=== PATIENT | male | born 2000 | race Two or more races ===

== ENCOUNTER 2024-11-01 12:29 | Inpatient (IN) | payer MEDICAID, OTHER ==
[~2024-11-01] VITALS: Ht 170.2 cm; Wt 65.5 kg
--- NOTE | 2024-11-01 12:40 | ED.PDOC ---
Altered Mental Status HPI Comments This is a 32 year old male ALTONA presenting to the ED with chief complaint of ETOH intoxication. EMS reports that the patient was found on the side of the road unconscious by bystanders, but patient was alert upon their arrival. EMS relays patient had drank an unknown amount of alcohol prior to being found. Patient denies any N/V/D, abdominal pain, dizziness, or headache. Time Seen by MD: 12:38 Reviewed Notes: Nurses Notes, Breaker Up Machine Operator Notes, Medications, Allergies Allergies: Coded Allergies: NO KNOWN ALLERGIES (Unverified , 11/01/24) Information Source: Patient, Emergency Med Personnel Mode of Arrival: Ambulatory Severity: Severe Timing: Hours Duration: Since onset Prehospital treatment: None Quality: Change in Behavior, Confusion Recent: Other (ETOH intoxication) Past Medical History PAST MEDICAL HISTORY: Denies Surgical History: Denies all surgeries Family History Family History: Reviewed,noncontributory to illness Social History Smoker: Non-Smoker Alcohol: Heavy Drugs: Denies Drug Use Lives In: Unknown Constitutional: denies: chills, diaphoresis, fatigue, fever, malaise, sweats, weakness, others EENTM: denies: blurred vision, double vision, ear bleeding, ear discharge, ear drainage, ear pain, ear ringing, eye pain, eye redness, hearing loss, mouth pain, mouth swelling, nasal discharge, nose bleeding, nose congestion, nose pain, photophobia, tearing, throat pain, throat swelling, voice changes, others Respiratory: denies: cough, hemoptysis, orthopnea, SOB at rest, shortness of breath, SOB with excertion, stridor, wheezing, others Cardiovascular: denies: chest pain, dizzy spells, diaphoresis, Dyspnea on exertion, edema, irregular heart beat, left arm pain, lightheadedness, palpi tations, PND, syncope, others Gastrointestinal: denies: abdomen distended, abdominal pain, blood streaked bowels, constipated, diarrhea, dysphagia, difficulty swallowing, hematemesis, melena, nausea, poor appetite, poor fluid intake, rectal bleeding, rectal pain, vomiting, others Genitourinary: denies: burning, dysuria, flank pain, frequency, hematuria, incontinence, penile discharge, penile sore, pain, testicle pain, testicle swelling, urgency, others Neurological: denies: dizziness, fainting, headache, left sided numbness, left sided weakness, numbness, paresthesia, pre-existing deficit, right sided numbness, right sided weakness, seizure, speech problems, tingling, tremors, weakness, others Musculoskeletal: denies: back pain, gout, joint pain, joint swelling, muscle pain, muscle stiffness, neck pain, others Integumetry: denies: bruises, change in color, change in hair/nails, dryness, laceration, lesions, lumps, rash, wounds, others Allergic/Immunocompromised: denies: Difficulty Healing, Frequent Infections, Hives, Itching, others Hematologic/Lymphatic: denies: anemia, blood clots, easy bleeding, easy bruis ing, swollen glands, others Endocrine: denies: excessive hunger, excessive sweating, excessive thirst, exc essive urination, flushing, intolerance to cold, intolerance to heat, unexplained weight gain, unexplained weight loss, others Psychiatric: denies: anxiety, bipolar disorder, depression, hopeless, panic disorder, schizophrenia, sleepless, suicidal, others Unable to Obtain due to: Altered Mental Status All Other Systems: Reviewed and Negative Physical Exam General Appearance: Moderate Distress, Normal HEENT: Normal ENT Inspection, Pharynx Normal, TMs Normal Neck: Full Range of Motion, Non-Tender, Normal, Normal Inspection Respiratory: Chest Non-Tender, Lungs Clear, No Accessory Muscle Use, No Res piratory Distress, Normal Breath Sounds Cardiovascular: No Edema, No JVD, No Murmur, No Gallop, Normal Peripheral Pulses, Regular Rate/Rhythm Breast Exam: Deferred Gastrointestinal: No Organomegaly, Non Tender, No Pulsatile Mass, Normal Bowel Sounds, Soft Genitalia: Deferred Pelvic: Deferred Rectal: Deferred Extremities: No calf tenderness, Normal capillary refill, Normal range of motion, Non-tender, No pedal edema Musculoskeletal : Apperance: Normal Neurologic: Disoriented Cerebellar Function: NOT DONE Reflexes: NOT DONE Skin: Dry, Normal Color, Warm Peripheral Pulses: 3+ Radial (R), 3+ Radial (L) Lymphatic: No Adenopathy Was a procedure done? Was a procedure done?: No Differential Diagnosis (ALOC) Differential Diagnosis: ETOH Intoxication X-Ray, Labs, Meds, VS Vital Signs Date Time Temp Pulse Resp B/P (MAP) Pulse Ox O2 Delivery O2 Flow Rate FiO2 11/01/24 13:15 89 16 98 Room Air* 0 21 11/01/24 13:15 98.3 83 15 140/85 (103) 99 98.3 11/01/24 12:53 98.0 107 17 137/60 96 98.0 Lab Test 11/01/24 13:02 11/01/24 12:58 11/01/24 12:56 Range/Units Urine Opiates Screen Neg NEGATIVE Urine Fentanyl Screen Neg NEGATIVE Urine Barbiturates Screen Neg NEGATIVE Urine Phencyclidine Screen Neg NEGATIVE Urine Amphetamines Screen Neg NEGATIVE Urine Benzodiazepines Screen Neg NEGATIVE Urine Cocaine Screen Neg NEGATIVE Urine Cannabinoids Screen Neg NEGATIVE POC Glucose 77 70-106 mg/dl White Blood Count 12.4 H 4.4-10.8 10^3/uL Red Blood Count 5.21 4.5-5.90 10^6/uL Hemoglobin 15.5 13.5-17.5 g/dL Hematocrit 44.6 41.0-53.0 % Mean Corpuscular Volume 85.7 80.0-100.0 fL Mean Corpuscular Hemoglobin 29.8 28.0-32.0 pg Mean Corpuscular Hemoglobin Concent 34.8 32.0-36.0 g/dL Red Cell Distribution Width 12.7 11.8-14.3 % Platelet Count 321 140-450 10^3/uL Mean Platelet Volume 7.9 6.9-10.8 fL Neutrophils (%) (Auto) 79.1 37.0-80.0 % Lymphocytes (%) (Auto) 14.8 10.0-50.0 % Monocytes (%) (Auto) 5.4 0.0-12.0 % Eosinophils (%) (Auto) 0.3 0.0-7.0 % Basophils (%) (Auto) 0.4 0.0-2.0 % Neutrophils # (Auto) 9.8 H 1.6-8.6 10 ^3/uL Lymphocytes # (Auto) 1.8 0.4-5.4 10 ^3/uL Monocytes # (Auto) 0.7 0-1.3 10 ^3/uL Eosinophils # (Auto) 0 0-0.8 10 ^3/uL Basophils # (Auto) 0.1 0-0.2 10 ^3/uL Nucleated Red Blood Cells 0.0 % Sodium Level 137 136-145 mmol/L Potassium Level 3.6 3.5-5.1 mmol/L Chloride Level 101 98-107 mmol/L Carbon Dioxide Level 24 20-31 mmol/L Anion Gap 12 5-15 Blood Urea Nitrogen 10 9-23 mg/dL Creatinine 0.86 0.700-1.30 mg/dL Glomerular Filtration Rate Calc 119 >90 mL/min BUN/Creatinine Ratio 11.6 10.0-20.0 Serum Glucose 87 74-106 mg/dL Calcium Level 9.9 8.7-10.4 mg/dL Plasma/Serum Blood Alcohol < 3.0 <10 mg/dL Current Medications Medications (Trade) Dose Ordered Sig/Juan Pablo Route Start Time Stop Time Status Last Admin Thiamine HCl 100 mg ONCE ONCE IV 11/01/24 12:45 11/01/24 12:46 DC 11/01/24 13:15 Sodium Chloride 1,000 ml @ 1,000 mls/hr Q1H ONCE IV 11/01/24 12:45 11/01/24 13:44 DC 11/01/24 13:15 Sodium Chloride 1,000 ml @ 150 mls/hr Q6H40M ONCE IV 11/01/24 12:45 11/01/24 19:24 11/01/24 13:16 Sodium Chloride 1,000 ml @ 1,000 mls/hr Q1H ONCE IV 11/01/24 13:30 11/01/24 14:29 DC 11/01/24 14:26 Patient alcohol on breath. Has been vomiting. Establish intravenous access. Was given fluids. Was given thiamine. CT of the head. WBC slightly elevated possibly from dehydration. Continue monitoring. Time of 1ST Reevaluation: 13:38 Reevaluation 1ST: Unchanged Patient Education/Counseling: Diagnosis, Treatment Family Education/Counseling: No Family Present SEPSIS Sepsis Screen Physician Orders Sodium Chloride 0.9% (11/01/24 12:45) Head Without Contrast (11/01/24 13:30) Lorazepam 2mg/Ml Inj (Ativan Inj) (11/01/24 13:30) Vital Signs Date Time Temp Pulse Resp B/P (MAP) Pulse Ox O2 Delivery O2 Flow Rate FiO2 11/01/24 13:15 89 16 98 Room Air* 0 21 11/01/24 13:15 98.3 83 15 140/85 (103) 99 98.3 11/01/24 12:53 98.0 107 17 137/60 96 98.0 Laboratory Tests Test 11/01/24 12:56 White Blood Count 12.4 10^3/uL (4.4-10.8) H Medications Medications Dose Ordered Sig/Juan Pablo Route Start Time Stop Time Status Last Admin Dose Admin Sodium Chloride 1,000 ml @ 150 mls/hr Q6H40M ONCE IV 11/01/24 12:45 11/01/24 19:24 11/01/24 13:16 Sodium Chloride 1,000 ml @ 1,000 mls/hr Q1H ONCE IV 11/01/24 12:45 11/01/24 13:44 DC 11/01/24 13:15 Sodium Chloride 1,000 ml @ 1,000 mls/hr Q1H ONCE IV 11/01/24 13:30 11/01/24 14:29 DC 11/01/24 14:26 Thiamine HCl 100 mg ONCE ONCE IV 11/01/24 12:45 11/01/24 12:46 DC 11/01/24 13:15 Departure 1 Departure Time of Disposition: 15:19 Impression: Primary Impression: Metabolic encephalopathy Additional Impression: Alcohol abuse Disposition: 09 ADMITTED INPATIENT Admit to: Med Surg Condition: Guarded Critical Care Note Critical Care Time?: No Stability Stability form required: No Heart Score Heart Score: Heart Score Response (Comments) Value History N/A 0 EKG N/A 0 Age N/A 0 Risk Factors N/A 0 Troponin N/A 0 Total 0 I personally scribed for JOSE PAYTON MD ([email or web address]) on 11/01/24 at 12:40. Electronically submitted by Yury Torres ([email or web address]). JOSE PAYTON MD Nov 01, 2024 12:40
[2024-11-01 13:15] VITALS: PULSE 89; RESP 16; O2SAT 98
[2024-11-01] MEDS: SODIUM CHLORIDE 0.9% 1,000 ML IV ONE ×3 (13:15→14:26)
[2024-11-01] MEDS: THIAMINE 100mg/ml INJ (200mg/2ml VIAL) IV ONE (13:15)
[2024-11-01] MEDS: LORazepam 2MG/ML-1ML VIAL ONE (13:49)
[2024-11-01 14:09] LABS: Hematocrit 44.6 % (41.0-53.0); Hemoglobin 15.5 g/dL (13.5-17.5); Mean Corpuscular Hemoglobin 29.8 pg (28.0-32.0); Mean Corpuscular Volume 85.7 fL (80.0-100.0); Nucleated Red Blood Cells % 0.0 %
--- NOTE | 2024-11-01 14:11 | DVH ---
CLINICAL HISTORY: altered TECHNIQUE: Helical scanning was performed of the head from the skull base to the vertex. Multiplanar reconstructions were performed. This exam was performed according to our departmental dose optimizat ion program. Up-to-date CT equipment and radiation dose reduction techniques are utilized as appropri ate. CTDI 59.6 DLP 03/12/71 COMPARISON: None FINDINGS: There is no evidence for acute intracranial hemorrhage, acute ischemic changes, mass, mass effect, or extra-axial fluid collection. There is no hydrocephalus or midline shift. There is no effacement of the cerebral sulci and basal subarachnoid cisterns. The harden-white matter differentiation is well toy ntained. The imaged paranasal sinuses are clear. IMPRESSION: NO ACUTE INTRACRANIAL ABNORMALITY SEEN.
[2024-11-01 14:17] LABS: Chloride 101 mmol/L (98-107); Potassium 3.6 mmol/L (3.5-5.1); Sodium 137 mmol/L (136-145)
[2024-11-01 14:18] LABS: Anion Gap 12 (5-15); Calcium 9.9 mg/dL (8.7-10.4); Carbon Dioxide 24 mmol/L (20-31)
[2024-11-01 14:23] LABS: BUN/Creatinine Ratio 11.6 (10.0-20.0); Blood Urea Nitrogen 10 mg/dL (9-23); Glucose 87 mg/dL (74-106)
[2024-11-01 14:54] LABS: Amphetamine Screen, Urine Neg (NEGATIVE); Barbiturate Scree,Urine Neg (NEGATIVE); Benzodiazephine Screen, Urine Neg (NEGATIVE); Cannabinoid Screen, Urine Neg (NEGATIVE); Cocaine Screen, Urine Neg (NEGATIVE); Opiate Scree,Urine Neg (NEGATIVE); Phencyclidine Screen, Urine Neg (NEGATIVE)
[2024-11-01] MEDS: LORazepam 2MG/ML-1ML VIAL IV ONE (15:18)
[2024-11-01 18:29] LABS: Urine Protein, UAD Negative (Negative)
[2024-11-01 19:34] VITALS: PULSE 71; RESP 20; O2SAT 97
[2024-11-02 07:28] VITALS: PULSE 68; RESP 14; O2SAT 100
--- NOTE | 2024-11-02 11:33 | DVHHP2 ---
History of Present Illness History of Present Illness 32 year old male ROSAURA presenting to the ED , altered on streets. EMS reports that the patient was found on the side of the road unconscious by bystanders, but patient was alert upon their arrival. EMS relays patient had drank an unknown amount of alcohol prior to being found. Patient denies any N/V/D, abdominal pain, dizziness, or headache. Review of Systems Review of Systems ALOC, poor ROS Allergies: Coded Allergies: NO KNOWN ALLERGIES (Unverified , 11/01/24) Exam Vital Signs Vital Signs Date Time Temp Pulse Resp B/P (MAP) Pulse Ox O2 Delivery O2 Flow Rate FiO2 11/02/24 07:28 98.1 68 14 114/60 (78) 100 98.1 11/02/24 07:28 Room Air* 0 21 Exam GEN: Healthy-appearing, A&O x1 HEENT: NC/AT; MMM. CV: RRR, no m/r/g. LUNGS: CTAB, no w/r/c. ABD: Soft, NT/ND, NBS, no masses or organomegaly. EXT: skin Warm, well perfused. no rashes. No clubbing, cyanosis, or edema. NEURO: Ambulating with no limitations. No focal deficits. Labs/Xrays Labs Test 11/01/24 13:02 11/01/24 12:58 11/01/24 12:56 Range/Units Urine Color Colorless Yellow Urine Clarity Clear Clear Urine pH 6.0 5.0-9.0 Urine Specific [place] 1.002 1.001-1.035 Urine Protein Negative Negative Urine Ketones Negative Negative Urine Blood Negative Negative /uL Urine Nitrite Negative Negative Urine Bilirubin Negative Negative Urine Urobilinogen Normal Negative mg/dL Urine Leukocyte Esterase Negative Negative /uL Urine RBC <1 0 - 3 /hpf Urine Microscopic WBC < 1 0-3 /HPF Urine Squamous Epithelial Cells None seen <5 /hpf Urine Bacteria None seen None Seen /hpf Urine Glucose Normal Normal mg/dL Urine Opiates Screen Neg NEGATIVE Urine Fentanyl Screen Neg NEGATIVE Urine Barbiturates Screen Neg NEGATIVE Urine Phencyclidine Screen Neg NEGATIVE Urine Amphetamines Screen Neg NEGATIVE Urine Benzodiazepines Screen Neg NEGATIVE Urine Cocaine Screen Neg NEGATIVE Urine Cannabinoids Screen Neg NEGATIVE POC Glucose 77 70-106 mg/dl White Blood Count 12.4 H 4.4-10.8 10^3/uL Red Blood Count 5.21 4.5-5.90 10^6/uL Hemoglobin 15.5 13.5-17.5 g/dL Hematocrit 44.6 41.0-53.0 % Mean Corpuscular Volume 85.7 80.0-100.0 fL Mean Corpuscular Hemoglobin 29.8 28.0-32.0 pg Mean Corpuscular Hemoglobin Concent 34.8 32.0-36.0 g/dL Red Cell Distribution Width 12.7 11.8-14.3 % Platelet Count 321 140-450 10^3/uL Mean Platelet Volume 7.9 6.9-10.8 fL Neutrophils (%) (Auto) 79.1 37.0-80.0 % Lymphocytes (%) (Auto) 14.8 10.0-50.0 % Monocytes (%) (Auto) 5.4 0.0-12.0 % Eosinophils (%) (Auto) 0.3 0.0-7.0 % Basophils (%) (Auto) 0.4 0.0-2.0 % Neutrophils # (Auto) 9.8 H 1.6-8.6 10 ^3/uL Lymphocytes # (Auto) 1.8 0.4-5.4 10 ^3/uL Monocytes # (Auto) 0.7 0-1.3 10 ^3/uL Eosinophils # (Auto) 0 0-0.8 10 ^3/uL Basophils # (Auto) 0.1 0-0.2 10 ^3/uL Nucleated Red Blood Cells 0.0 % Sodium Level 137 136-145 mmol/L Potassium Level 3.6 3.5-5.1 mmol/L Chloride Level 101 98-107 mmol/L Carbon Dioxide Level 24 20-31 mmol/L Anion Gap 12 5-15 Blood Urea Nitrogen 10 9-23 mg/dL Creatinine 0.86 0.700-1.30 mg/dL Glomerular Filtration Rate Calc 119 >90 mL/min BUN/Creatinine Ratio 11.6 10.0-20.0 Serum Glucose 87 74-106 mg/dL Calcium Level 9.9 8.7-10.4 mg/dL Plasma/Serum Blood Alcohol < 3.0 <10 mg/dL SEPSIS Sepsis Screen Date sepsis recognized/suspect: Nov 01, 2024 Time Sepsis recognized/suspect: 1935 Recent Procedure: No On Antibiotic Therapy: No Respiratory Rate >20: No Heart Rate >90: No Temp<36 C (96.8 F) or >38.3 C: No SBP <90 or MAP <65 mmHG: No New Acute Mental Status Change: No Is the patient on CPAP, BIPAP,: No Vital Signs Date Time Temp Pulse Resp B/P (MAP) Pulse Ox O2 Delivery O2 Flow Rate FiO2 11/02/24 07:28 98.1 68 14 114/60 (78) 100 98.1 11/02/24 07:28 68 14 100 Room Air* 0 21 Assessment/Plan Assessment/Plan 11/[address] confused, Sirs present, CBC with leukocytosis, neutrophilia, some tachycardia. A&O x1, head CT negative, UA, UDS negative, blood alcohol level negative, needs ALOC workup. Some complain of vague chest pain and abdominal pain Diagnosis: Acute toxic metabolic encephalopathy Leukocytosis Neutrophilia Tachycardia Tachypnea, Plan: ALOC workup TSH, ammonia, Consider neurology consult Prn pain control Continue diet Med surge Full code Plan discussed with: Patient Date of Service: Nov 02, 2024 Billing Provider: KRISTIE VILCHIS MD Common Visit Codes: [id number] INP/OBS CARE (HIGH) Secondary Visit Codes: [id number] CARE PLAN 30 MINUTES KRISTIE VILCHIS MD Nov 02, 2024 11:33
[2024-11-02] MEDS ORDERED: MORPHINE SULFATE INJ 2 MG/ml SYRG IV PRN (11:45)
[2024-11-02] MEDS ORDERED: ACETAMINOPHEN 325 MG TAB PO PRN (11:45)
[2024-11-02] MEDS ORDERED: ONDANSETRON HCL 4 MG/2 ML VIAL IV PRN (11:45)
[2024-11-02] MEDS: HYDROcodone-ACET 5/325MG TAB PO PRN (12:12)
[2024-11-02 12:29] LABS: Hematocrit 45.7 % (41.0-53.0); Hemoglobin 15.9 g/dL (13.5-17.5); Mean Corpuscular Hemoglobin 30.1 pg (28.0-32.0); Mean Corpuscular Volume 86.7 fL (80.0-100.0); Nucleated Red Blood Cells % 0.1 %
--- NOTE | 2024-11-02 12:41 | DVH ---
CHEST RADIOGRAPH Indication: chest pain Technique: Single frontal view of the chest was obtained COMPARISON: None FINDINGS: Lines and Tubes: None Lungs: Clear Pleura: No effusion. No pneumothorax. Cardiomediastinal contours: Unremarkable Bones: Unremarkable IMPRESSION: No acute disease.
[2024-11-02 12:43] LABS: Alanine Aminotransferase 25 U/L (7-40); Albumin 4.4 g/dL (3.2-4.8); Alkaline Phosphatase 71 U/L (46-116); Anion Gap 13 (5-15); Calcium 9.2 mg/dL (8.7-10.4); Carbon Dioxide 22 mmol/L (20-31); Chloride 104 mmol/L (98-107); Potassium 3.6 mmol/L (3.5-5.1); Sodium 139 mmol/L (136-145)
[2024-11-02 12:44] LABS: BUN/Creatinine Ratio 7.3 (10.0-20.0); Total Protein 6.7 g/dL (5.7-8.2)
[2024-11-02 13:17] LABS: Bilirubin, Total 1.2 mg/dL (0.2-1.0); Blood Urea Nitrogen 6 mg/dL (9-23); Glucose 69 mg/dL (74-106)
[2024-11-02 14:16] VITALS: PULSE 66; RESP 18
[2024-11-02 17:00] VITALS: BP 116/61; PULSE 57; RESP 16
[2024-11-02 19:16] VITALS: BP 110/61; PULSE 70; RESP 24; O2SAT 95
[2024-11-02 21:00] VITALS: BP 115/59; PULSE 61; RESP 17; TEMP 98.1; O2SAT 98
[2024-11-02] MEDS: MELATONIN 5 MG TAB PO ONE (23:06)
[2024-11-02] MEDS ORDERED: MELATONIN 5 MG TAB ONE (23:08)
[2024-11-03 05:00] VITALS: BP_SYST 109; BP_SYST 116; BP_DIAS 56; BP_DIAS 77; PULSE 62; PULSE 94; RESP 17; RESP 18; TEMP 97.5; TEMP 97.7; O2SAT 99
[2024-11-03 07:00] LABS: Hematocrit 44.2 % (41.0-53.0); Hemoglobin 15.4 g/dL (13.5-17.5); Mean Corpuscular Hemoglobin 29.9 pg (28.0-32.0); Mean Corpuscular Volume 86.0 fL (80.0-100.0); Nucleated Red Blood Cells % 0.1 %
[2024-11-03 07:19] LABS: Alanine Aminotransferase 24 U/L (7-40); Albumin 4.2 g/dL (3.2-4.8); Alkaline Phosphatase 66 U/L (46-116); Anion Gap 10 (5-15); BUN/Creatinine Ratio 5.4 (10.0-20.0); Calcium 9.2 mg/dL (8.7-10.4); Carbon Dioxide 27 mmol/L (20-31); Chloride 103 mmol/L (98-107); Glucose 83 mg/dL (74-106); Potassium 3.8 mmol/L (3.5-5.1); Sodium 140 mmol/L (136-145); Total Protein 6.5 g/dL (5.7-8.2)
[2024-11-03 07:20] LABS: Bilirubin, Total 0.9 mg/dL (0.2-1.0); Blood Urea Nitrogen 5 mg/dL (9-23)
[2024-11-03 10:07] LABS: Free Thyroxine Index 1.4 (1.2-4.9)
--- NOTE | 2024-11-03 12:12 | DVHPN2 ---
Subjective Patient is seen at bedside today, doing well. Reviewed: H&P Changes from previous H/P or p: No Changes General: Per HPI Objective Vitals Vital Signs Date Time Temp Pulse Resp B/P (MAP) Pulse Ox O2 Delivery O2 Flow Rate FiO2 11/03/24 08:15 Room Air* 0 21 11/03/24 05:00 97.7 62 17 109/56 (73) 99 97.7 Intake/Output Intake and Output 11/03/24 07:00 Intake Total 1350 ml Output Total 2300 ml Balance -950 ml Intake Oral 1350 ml Output Urine Total 2300 ml # Voids 3 Exam GEN: Healthy-appearing, A&O x1 HEENT: NC/AT; MMM. CV: RRR, no m/r/g. LUNGS: CTAB, no w/r/c. ABD: Soft, NT/ND, NBS, no masses or organomegaly. EXT: skin Warm, well perfused. no rashes. No clubbing, cyanosis, or edema. NEURO: Ambulating with no limitations. No focal deficits. Medications Current Medications Medications Dose Ordered Sig/Juan Pablo Route Start Time Stop Time Status Last Admin Dose Admin Acetaminophen/ Hydrocodone Bitart 1 tab Q4HP PRN PO 11/02/24 11:45 11/02/24 12:12 1 TAB Ondansetron HCl 4 mg Q4HP PRN IV 11/02/24 11:45 Acetaminophen 650 mg Q6HP PRN PO 11/02/24 11:45 Morphine Sulfate 2 mg Q4HPRN PRN IV 11/02/24 11:45 Laboratory Results Laboratory Tests 11/03/24 06:37 Chemistry Test 11/02/24 12:13 11/03/24 06:37 Albumin 4.4 g/dL (3.2-4.8) 4.2 g/dL (3.2-4.8) Calcium Level 9.2 mg/dL (8.7-10.4) 9.2 mg/dL (8.7-10.4) Total Protein 6.7 g/dL (5.7-8.2) 6.5 g/dL (5.7-8.2) LFT Test 11/02/24 12:13 11/03/24 06:37 Alanine Aminotransferase (ALT) 25 U/L (7-40) 24 U/L (7-40) Alkaline Phosphatase 71 U/L (46-116) 66 U/L (46-116) Aspartate Amino Transferase (AST) 20 U/L (13-40) 16 U/L (13-40) Total Bilirubin 1.2 mg/dL (0.2-1.0) H 0.9 mg/dL (0.2-1.0) Urinalysis Test 11/01/24 13:02 Urine Color Colorless (Yellow) Urine Clarity Clear (Clear) Urine pH 6.0 (5.0-9.0) Urine Specific [place] 1.002 (1.001-1.035) Urine Protein Negative (Negative) Urine Ketones Negative (Negative) Urine Blood Negative /uL (Negative) Urine Nitrite Negative (Negative) Urine Bilirubin Negative (Negative) Urine Urobilinogen Normal mg/dL (Negative) Urine Leukocyte Esterase Negative /uL (Negative) Urine RBC <1 /hpf (0 - 3) Urine Microscopic WBC < 1 /HPF (0-3) Urine Squamous Epithelial Cells None seen /hpf (<5) Urine Bacteria None seen /hpf (None Seen) Urine Glucose Normal mg/dL (Normal) Labs and/or images reviewed: Labs reviewed by me, Image(s) reviewed by me Assessment/Plan Assessment/Plan 11/[address] confused, Sirs present, CBC with leukocytosis, neutrophilia, some tachycardia. A&O x1, head CT negative, UA, UDS negative, blood alcohol level negative, needs ALOC workup. Some complain of vague chest pain and abdominal pain 11/03: Patient much more alert and orient, now he is being some difficulty with nursing staff but nothing too significant. On evaluation initially he has some weakness lower extremity 2 to 3/5 but on repeat appears 3 to 4/5. With the concern of difficult ambulation and some initial weakness on exam we will get PT evaluation. Most labs workup is negative for any etiology of ALOC encephalopathy, UA UDS negative but I am concern of still some other unknown drug abuse leading to this. We will evaluate 1 more day for ambulation and lower extremity weakness concern, but toxic encephalopathy likely due to drug abuse is resolved now. Also need 1 more night IV fluids slow continuous 60 cc an hour total 1 L to complete drug washout. Also need to monitor 1 more day to ensure no relapse into ALOC. Diagnosis: Acute toxic metabolic encephalopathy Leukocytosis Neutrophilia Tachycardia Tachypnea, Plan: ALOC workup TSH, ammonia, Consider neurology consult Prn pain control Continue diet Med surge Full code Plan discussed with: Patient My Orders Orders - KRISTIE VILCHIS MD Procedure Category Date Status Time * Box Blank Machine Operator Helper CONS 11/03/24 Transmitted Consult Thyroid Stimulating LAB 11/03/24 Logged Hormone 12:00 Date of Service: Nov 03, 2024 Billing Provider: KRISTIE VILCHIS MD Common Visit Codes: [id number] INP/OBS CARE(HIGH) KRISTIE VILCHIS MD Nov 03, 2024 12:12
[2024-11-03 17:00] VITALS: BP 117/60; PULSE 52; RESP 16; TEMP 96.7; O2SAT 98
[2024-11-03 21:00] VITALS: BP 116/69; PULSE 58; RESP 16; TEMP 98.1; O2SAT 98
[2024-11-03] MEDS: TEMAZEPAM 15 MG CAP PO ONE (21:50)
[2024-11-04 01:00] VITALS: BP 100/55; RESP 15; TEMP 97.3; O2SAT 97
[2024-11-04 09:00] VITALS: BP 117/68; PULSE 60; RESP 18; TEMP 98.3; O2SAT 97
--- NOTE | 2024-11-04 12:39 | DVHDS2 ---
Discharge Summary Date of Admission Nov 02, 2024 at 11:31 Date of Discharge: Nov 04, 2024 Labs/Diagnostic Data: Laboratory Results Test 11/03/24 06:37 11/02/24 12:13 11/01/24 13:02 11/01/24 12:58 White Blood Count 7.9 10^3/uL (4.4-10.8) Red Blood Count 5.14 10^6/uL (4.5-5.90) Hemoglobin 15.4 g/dL (13.5-17.5) Hematocrit 44.2 % (41.0-53.0) Mean Corpuscular Volume 86.0 fL (80.0-100.0) Mean Corpuscular Hemoglobin 29.9 pg (28.0-32.0) Mean Corpuscular Hemoglobin Concent 34.8 g/dL (32.0-36.0) Red Cell Distribution Width 12.7 % (11.8-14.3) Platelet Count 278 10^3/uL (140-450) Mean Platelet Volume 7.7 fL (6.9-10.8) Neutrophils (%) (Auto) 73.5 % (37.0-80.0) Lymphocytes (%) (Auto) 20.1 % (10.0-50.0) Monocytes (%) (Auto) 3.7 % (0.0-12.0) Eosinophils (%) (Auto) 1.8 % (0.0-7.0) Basophils (%) (Auto) 0.9 % (0.0-2.0) Neutrophils # (Auto) 5.8 10 ^3/uL (1.6-8.6) Lymphocytes # (Auto) 1.6 10 ^3/uL (0.4-5.4) Monocytes # (Auto) 0.3 10 ^3/uL (0-1.3) Eosinophils # (Auto) 0.1 10 ^3/uL (0-0.8) Basophils # (Auto) 0.1 10 ^3/uL (0-0.2) Nucleated Red Blood Cells 0.1 % Sodium Level 140 mmol/L (136-145) Potassium Level 3.8 mmol/L (3.5-5.1) Chloride Level 103 mmol/L (98-107) Carbon Dioxide Level 27 mmol/L (20-31) Anion Gap 10 (5-15) Blood Urea Nitrogen 5 mg/dL (9-23) Creatinine 0.92 mg/dL (0.700-1.30) Glomerular Filtration Rate Calc 115 mL/min (>90) BUN/Creatinine Ratio 5.4 (10.0-20.0) Serum Glucose 83 mg/dL (74-106) Calcium Level 9.2 mg/dL (8.7-10.4) Total Bilirubin 0.9 mg/dL (0.2-1.0) Aspartate Amino Transferase (AST) 16 U/L (13-40) Alanine Aminotransferase (ALT) 24 U/L (7-40) Alkaline Phosphatase 66 U/L (46-116) Total Protein 6.5 g/dL (5.7-8.2) Albumin 4.2 g/dL (3.2-4.8) Thyroid Stimulating Hormone (TSH) 1.09 uIU/mL (0.55-4.78) Ammonia < 10 umol/L (11-32) Free Thyroxine Index 1.4 (1.2-4.9) Thyroxine (T4) 5.8 ug/dL (4.5-12.0) Triiodothyronine (T3) Uptake 24 % (24-39) Urine Color Colorless (Yellow) Urine Clarity Clear (Clear) Urine pH 6.0 (5.0-9.0) Urine Specific Mcdermott 1.002 (1.001-1.035) Urine Protein Negative (Negative) Urine Ketones Negative (Negative) Urine Blood Negative /uL (Negative) Urine Nitrite Negative (Negative) Urine Bilirubin Negative (Negative) Urine Urobilinogen Normal mg/dL (Negative) Urine Leukocyte Esterase Negative /uL (Negative) Urine RBC <1 /hpf (0 - 3) Urine Microscopic WBC < 1 /HPF (0-3) Urine Squamous Epithelial Cells None seen /hpf (<5) Urine Bacteria None seen /hpf (None Seen) Urine Glucose Normal mg/dL (Normal) Urine Opiates Screen Neg (NEGATIVE) Urine Fentanyl Screen Neg (NEGATIVE) Urine Barbiturates Screen Neg (NEGATIVE) Urine Phencyclidine Screen Neg (NEGATIVE) Urine Amphetamines Screen Neg (NEGATIVE) Urine Benzodiazepines Screen Neg (NEGATIVE) Urine Cocaine Screen Neg (NEGATIVE) Urine Cannabinoids Screen Neg (NEGATIVE) POC Glucose 77 mg/dl (70-106) Test 11/01/24 12:56 Plasma/Serum Blood Alcohol < 3.0 mg/dL (<10) Other Laboratory Tests 11/03/24 06:37 Brief Hx & Hospital Course: 32 year old male ROSAURA presenting to the ED , altered on streets. EMS reports that the patient was found on the side of the road unconscious by bystanders, but patient was alert upon their arrival. EMS relays patient had drank an unknown amount of alcohol prior to being found. Patient denies any N/V/D, abdominal pain, dizziness, or headache. 11/[address] confused, Sirs present, CBC with leukocytosis, neutrophilia, some tachycardia. A&O x1, head CT negative, UA, UDS negative, blood alcohol level negative, needs ALOC workup. Some complain of vague chest pain and abdominal pain 11/03: Patient much more alert and orient, now he is being some difficulty with nursing staff but nothing too significant. On evaluation initially he has some weakness lower extremity 2 to 3/5 but on repeat appears 3 to 4/5. With the concern of difficult ambulation and some initial weakness on exam we will get PT evaluation. Most labs workup is negative for any etiology of ALOC encephalopathy, UA UDS negative but I am concern of still some other unknown drug abuse leading to this. We will evaluate 1 more day for ambulation and lower extremity weakness concern, but toxic encephalopathy likely due to drug abuse is resolved now. Also need 1 more night IV fluids slow continuous 60 cc an hour total 1 L to complete drug washout. Also need to monitor 1 more day to ensure no relapse into ALOC. 11/04: Patient is feeling better, remains in altered no further signs of relapse into ALOC, tolerating diet, PT evaluated the patient and the patient is independent good gait no dizziness neurologically intact, exam benign. Patient has acute episode of toxic metabolic encephalopathy likely due to substance abuse, which was unable to be picked up by regular UDS. Patient advised to avoid any such substances and/or going to occasions 2nd results in ingestion without knowledge of troches. Patient vital signs stable, stable for discharge as per plan below. Diagnosis: Acute toxic metabolic encephalopathy, atypical substance abuse likely Alcohol intoxication ruled out Sirs without AOD Leukocytosis Neutrophilia Tachycardia Tachypnea, Plan: - continue hydration - Advised avoid substance abuse or visiting establishments where unintentional ingestion can occur - follow up with PCP to review discharge Condition at Discharge: Fair Final Diagnosis/Problems List Acute toxic metabolic encephalopathy, atypical substance abuse likely Alcohol intoxication ruled out Sirs without AOD Leukocytosis Neutrophilia Tachycardia Tachypnea, Discharge Disposition: Home Discharge Instruct/Medications No Active Prescriptions or Reported Meds Discharge Statement: "Patient was advised to return to the ER or call 911 if any headaches, dizziness, shortness of breath, chest pain, abdominal pain, bleeding, fevers, or worsening of medical condition. Patient was counseled about treatment plan, medications, possible side effects, patientverbalized understanding. All questions were answered to the best of my ability. This discharge took greater then 30 minutes in planning, reviewing documentation, counseling the patient, and discussing with other team members." ASSESSMENT ASSESSMENT Assessment Date of Service: Nov 04, 2024 Billing Provider: KRISTIE VILCHIS MD Common Visit Codes: 59122-VDY/OBS DISCH DAY >30min KRISTIE VILCHIS MD Nov 04, 2024 12:39
[2024-11-04 13:00] VITALS: BP 115/69; PULSE 51; RESP 16; TEMP 98.5; O2SAT 98
[2024-11-04 16:07] VITALS: BP 115/69; PULSE 51; RESP 16; TEMP 98.5; O2SAT 98
[2024-11-04 17:00] VITALS: BP 116/74; PULSE 68; RESP 16; TEMP 97.4; O2SAT 98
== END 2024-11-04 20:50 | disposition left against medical advice (07) | DRG 812 ==
LOC: EDBD 12:29 → ER 12:29 → OVERFLOW 11-02 11:31 → EDBD 11-02 11:31 → WEST WING 11-02 20:49
PROVIDERS: ADMIT Student in an Organized Health Care Education/Training Program; ATTEND Student in an Organized Health Care Education/Training Program
DX: T50.901A Poisoning by unspecified drugs, medicaments and biological substances, accidental (unintentional), initial encounter (principal); G92.8 Other toxic encephalopathy; D72.829 Elevated white blood cell count, unspecified; R65.10 Systemic inflammatory response syndrome (SIRS) of non-infectious origin without acute organ dysfunction; R06.82 Tachypnea, not elsewhere classified; F19.10 Other psychoactive substance abuse, uncomplicated; F10.10 Alcohol abuse, uncomplicated; Y90.9 Presence of alcohol in blood, level not specified; Z53.29 Procedure and treatment not carried out because of patient's decision for other reasons
CPT/HCPCS: 36415; 70450; 71045; 80048; 80053; 80307; 80320; 81001; 82140; 82962; 84443; 85025; 96361; 96374; 97163; G0378

== ENCOUNTER 2024-11-06 00:33 | Emergency (ER) | payer MEDICAID ==
[~2024-11-06] VITALS: Ht 172.7 cm; Wt 65.9 kg
[2024-11-06 00:33] VITALS: BP 159/81; PULSE 109; RESP 18; TEMP 98.7; O2SAT 97
[2024-11-06] MEDS ORDERED: ACET500T58 PO (03:05)
--- NOTE | 2024-11-06 03:08 | ED.PDOC ---
Back pain HPI HPI Comments 23 year old male presents to ER with complaints of bilateral leg pain x 2 days. Patient states he started experiencing bilateral leg pain 2 days ago. He rates his current bilateral leg pain an 8/10 and denies use of medications for current symptoms. Patient presents to ER ambulatory on arrival, with steady gait, in no distress. Denies fever, numbness/tingling, skin changes, calf pain, shortness of breath, chest pain or any further symptoms/complaints Time Seen by MD: 02:28 Primary Care Provider: UNKNOWN Reviewed Notes: Nurses Notes, Medications, Allergies Allergies: Coded Allergies: NO KNOWN ALLERGIES (Unverified , 11/01/24) Home Meds No Active Prescriptions or Reported Meds Information Source: Patient Mode of Arrival: Ambulatory Past Medical History PAST MEDICAL HISTORY: Denies Surgical History: Denies all surgeries Family History Family History: Unknown Social History Smoker: Non-Smoker Alcohol: Occasionally Drugs: Denies Drug Use Lives In: Home Constitutional: denies: chills, diaphoresis, fatigue, fever, malaise, sweats, weakness, others EENTM: denies: blurred vision, double vision, ear bleeding, ear discharge, ear drainage, ear pain, ear ringing, eye pain, eye redness, hearing loss, mouth pain, mouth swelling, nasal discharge, nose bleeding, nose congestion, nose pain, photophobia, tearing, throat pain, throat swelling, voice changes, others Respiratory: denies: cough, hemoptysis, orthopnea, SOB at rest, shortness of breath, SOB with excertion, stridor, wheezing, others Cardiovascular: denies: chest pain, dizzy spells, diaphoresis, Dyspnea on exertion, edema, irregular heart beat, left arm pain, lightheadedness, palpitations, PND, syncope, others Gastrointestinal: denies: abdomen distended, abdominal pain, blood streaked bowels, constipated, diarrhea, dysphagia, difficulty swallowing, hematemesis, melena, nausea, poor appetite, poor fluid intake, rectal bleeding, rectal pain, vomiting, others Genitourinary: denies: burning, dysuria, flank pain, frequency, hematuria, incontinence, penile discharge, penile sore, pain, testicle pain, testicle swelling, urgency, others Neurological: denies: dizziness, fainting, headache, left sided numbness, left sided weakness, numbness, paresthesia, pre-existing deficit, right sided numbness, right sided weakness, seizure, speech problems, tingling, tremors, weakness, others Musculoskeletal: reports: others (As stated in HPI) Integumetry: denies: bruises, change in color, change in hair/nails, dryness, laceration, lesions, lumps, rash, wounds, others Allergic/Immunocompromised: denies: Difficulty Healing, Frequent Infections, Hives, Itching, others Hematologic/Lymphatic: denies: anemia, blood clots, easy bleeding, easy bruising, swollen glands, others Endocrine: denies: excessive hunger, excessive sweating, excessive thirst, excessive urination, flushing, intolerance to cold, intolerance to heat, unex plained weight gain, unexplained weight loss, others Psychiatric: denies: anxiety, bipolar disorder, depression, hopeless, panic disorder, schizophrenia, sleepless, suicidal, others Physical Exam General Appearance: No Apparent Distress HEENT: PERRL/EOMI Neck: Full Range of Motion, Non-Tender, Normal Respiratory: Chest Non-Tender, Lungs Clear, No Accessory Muscle Use, No Respiratory Distress, Normal Breath Sounds Cardiovascular: No Murmur, No Gallop, Regular Rate/Rhythm Breast Exam: Deferred Gastrointestinal: NOT DONE Genitalia: Deferred Pelvic: Deferred Rectal: Deferred Extremities: No calf tenderness, Normal capillary refill, Normal range of motion Musculoskeletal : Extremity Location: Leg (No TTP or skin changes to bilateral legs appreciated. Gait intact without abnormality) Neurologic: Alert, No Motor Deficits, Normal Affect, Normal Mood, No Sensory Deficits Cerebellar Function: Normal Reflexes: Normal Skin: Dry, Normal Color, Warm Peripheral Pulses: 2+ femoral (R), 2+ femoral (L), 2+ dorsalis pedis (R), 2+ dorsalis pedis (L), 2+ Radial (R), 2+ Radial (L), 2+ Brachial (R), 2+ Brachial (L) Lymphatic: No Adenopathy Was a procedure done? Was a procedure done?: No Sedation Sedation?: No Back Pain Differential Dx Differential Diagnosis: Fracture, Other (Neurovascular injury, DVT) X-Ray, Labs, Meds, VS Patient neurovascularly intact and in no distress during ER visit/prior to discharge Advised to drink plenty of fluids Advised to follow up with PCP in 1-2 days Patient verbalized understanding and agreeable with current plan of care Advised to return to ER immediately if symptoms worsen Time of 1ST Reevaluation: 02:44 Reevaluation 1ST: N/A Patient Education/Counseling: Diagnosis, Treatment, Prognosis, Need For Follow Up Family Education/Counseling: No Family Present Departure 1 Departure Time of Disposition: 03:05 Impression: Primary Impression: Musculoskeletal pain of left lower extremity Additional Impression: Musculoskeletal pain of right lower extremity Disposition: 01 HOME / SELF CARE / HOMELESS Condition: Stable e-Prescriptions Acetaminophen (Acetaminophen) 500 Mg Tab 500 MG PO Q4HPRN, #30 TAB 0 Refills Prov: SOLEDAD DENIS 11/06/24 Discharged With: Self Critical Care Note Critical Care Time?: No Stability Stability form required: No Heart Score Heart Score: Heart Score Response (Comments) Value History N/A 0 EKG N/A 0 Age N/A 0 Risk Factors N/A 0 Troponin N/A 0 Total 0 SOLEDAD DENIS Nov 06, 2024 03:07
== END 2024-11-06 04:28 | disposition home or self-care (01) ==
LOC: ER 02:19
DX: M79.605 Pain in left leg (principal); M79.604 Pain in right leg; F10.90 Alcohol use, unspecified, uncomplicated; Y90.9 Presence of alcohol in blood, level not specified